=== PATIENT | female | born 1950 | race Caucasian/White ===

== ENCOUNTER 2018-08-11 16:35 | Emergency (ER) | payer SELFPAY ==
[~2018-08-11] VITALS: Ht 152.4 cm; Wt 72.7 kg
[~2018-08-11 16:35] MED LIST: AMLO-512 PO; ASPI81 PO; ATOR20TA86 PO; ATOR40TA28 PO; CLON-570 PO; DSS100 PO; FAMO-136 PO; INSLAN SQ; INSNOV SQ; METO50 PO
[2018-08-11 16:49] LABS: GLUCOSE,POINT OF CARE 203 MG/DL (70-110)
[2018-08-11] MEDS ORDERED: FERR-89 PO (16:57)
[2018-08-11] MEDS ORDERED: LACT1TAB11 PO (16:57)
[2018-08-11] MEDS ORDERED: METF-960 PO (16:57)
[2018-08-11] MEDS ORDERED: CefTRIAXone 1 GM/DEXTROSE 50 ML IV ONE (17:30)
[2018-08-11 18:08] LABS: BASOPHILS % (AUTO) 0.9 % (0.0-2.0); EOSINOPHILS % (AUTO) 2.4 % (1.0-6.0); HEMATOCRIT 35.8 % (36-46); HEMOGLOBIN 11.7 g/dL (12.0-16.0); LYMPHOCYTES # (AUTO) 2.4 K/uL (1.0-4.8); LYMPHOCYTES % (AUTO) 24.9 % (22.0-44.0); MEAN CORPUSCULAR HEMOGLOBIN 25.7 pg (26.0-34.0); MEAN CORPUSCULAR HGB CONC 32.7 G/dL (31.0-37.0); MEAN CORPUSCULAR VOLUME 79 fL (80-100); MONOCYTES # (AUTO) 0.6 K/uL (0.1-1.0); MONOCYTES % (AUTO) 6.5 % (2.0-9.0); NEUTROPHILS # (AUTO) 6.2 K/uL (1.8-7.7); NEUTROPHILS % (AUTO) 65.3 % (40.0-70.0); PLATELET COUNT (AUTO) 315 K/uL (150-450); RED BLOOD CELL COUNT(AUTO) 4.54 MIL/uL (4.00-5.20); RED CELL DISTRIBUTION WIDTH 16.2 % (11.5-14.5)
[2018-08-11 18:26] LABS: CALCIUM, TOTAL 9.7 mg/dL (8.8-10.5); CREATININE 1.09 mg/dL (0.60-1.30); POTASSIUM 4.4 mmol/L (3.5-5.1)
[2018-08-11 18:31] LABS: ALBUMIN 3.8 g/dL (3.4-5.0); BILIRUBIN,TOTAL 0.3 mg/dL (0.1-1.0); TOTAL PROTEIN, SERUM 8.1 g/dL (6.4-8.2)
[2018-08-11 19:33] LABS: APPEARANCE,URINE CLEAR (CLEAR); BILIRUBIN,URINE NEGATIVE (NEGATIVE); GLUCOSE, URINE (UA) 100 mg/dL (NEGATIVE); KETONES,URINE NEGATIVE (NEGATIVE); LEUKOCYTE ESTERASE ,URINE NEGATIVE (NEGATIVE); NITRATE,URINE NEGATIVE (NEGATIVE); OCCULT BLOOD,URINE NEGATIVE (NEGATIVE); PH,URINE 6.5 (5.0-8.0); PROTEIN,URINE NEGATIVE (NEGATIVE); UROBILINOGEN,URINE 0.2 mg/dL (<=1.0)
[2018-08-11 19:43] LABS: BACTERIA,URINE Rare /HPF (None Seen); RBC,URINE 0-2 /HPF (0-2); SQUAMOUS EPITHELIAL CELL,UR Few /LPF (None Seen); WBC,URINE 0-2 /HPF (0-5)
[2018-08-11 19:52] VITALS: BP 142/77
== END 2018-08-11 20:01 | disposition home or self-care (01) ==
LOC: EMS 16:35
DX: N39.0 Urinary tract infection, site not specified (principal); D64.9 Anemia, unspecified; R82.79 Other abnormal findings on microbiological examination of urine; I10 Essential (primary) hypertension; E11.9 Type 2 diabetes mellitus without complications; E78.00 Pure hypercholesterolemia, unspecified; Z88.0 Allergy status to penicillin; Z79.4 Long term (current) use of insulin; Z79.82 Long term (current) use of aspirin
CPT/HCPCS: 86850; 86900; 86901; 96365

== ENCOUNTER 2019-09-08 13:21 | Emergency (ER) | payer MEDICARE ==
[~2019-09-08] VITALS: Ht 152.4 cm; Wt 72.7 kg
[~2019-09-08 13:21] MED LIST changes: -AMLO-512 PO; +AMLO10TA7 PO; +ASPI-728 PO; -ASPI81 PO; -ATOR20TA86 PO; -CLON-570 PO; -FAMO-136 PO; +FERR-89 PO; -INSNOV SQ; +LACT1TAB14 PO; +METF-960 PO
[2019-09-08] MEDS ORDERED: GABA-1181 PO (13:36)
[2019-09-08] MEDS ORDERED: OMEP20 PO (13:36)
[2019-09-08] MEDS ORDERED: AMLO10TA7 PO (13:36)
[2019-09-08] MEDS ORDERED: INSLAN SQ (13:36)
[2019-09-08] MEDS ORDERED: LISI-662 PO (13:36)
[2019-09-08] MEDS ORDERED: ATOR40TA28 PO (13:36)
[2019-09-08] MEDS ORDERED: METO50 PO (13:36)
[2019-09-08] MEDS ORDERED: METF-960 PO (13:36)
[2019-09-08] MEDS ORDERED: LIDOCAINE 5% TRANSDERMAL PATCH TD ONE (14:45)
[2019-09-08] MEDS ORDERED: KETOROLAC TROMETHAMINE 30 MG/ML VIAL IM ONE (14:45)
[2019-09-08 16:53] VITALS: BP 126/82
[2019-09-09 01:28] LABS: GLUCOSE,POINT OF CARE 109 MG/DL (70-110)
== END 2019-09-08 16:54 | disposition home or self-care (01) ==
LOC: EMS 13:22
DX: M54.41 Lumbago with sciatica, right side (principal); M19.90 Unspecified osteoarthritis, unspecified site; M46.1 Sacroiliitis, not elsewhere classified; E11.9 Type 2 diabetes mellitus without complications; E78.00 Pure hypercholesterolemia, unspecified; I10 Essential (primary) hypertension; I25.2 Old myocardial infarction; Z90.710 Acquired absence of both cervix and uterus; Z86.73 Personal history of transient ischemic attack (TIA), and cerebral infarction without residual deficits; Z88.0 Allergy status to penicillin; Z79.82 Long term (current) use of aspirin
CPT/HCPCS: 73502; 73562; 81002; 82962; 99284; J1885

== ENCOUNTER 2024-06-06 19:38 | Inpatient (IN) | payer MEDICARE ==
[~2024-06-06] VITALS: Ht 167.6 cm; Wt 60.5 kg
[~2024-06-06 19:38] MED LIST changes: +AMLO-258 PO; -AMLO10TA7 PO; +ASPI-1450 PO; -ASPI-728 PO; -DSS100 PO; -FERR-89 PO; +GABA-1181 PO; -LACT1TAB14 PO; +LISI-894 PO; +METF-1211 PO; -METF-960 PO; +OMEP-148 PO
[2024-06-06] MEDS: IPRATROPIUM BROMIDE 0.5 MG/2.5 ML NEB SOLUTION NEB ONE (19:52)
[2024-06-06] MEDS: ALBUTEROL SULFATE 2.5 MG/0.5 ML NEB SOLUTION NEB ONE (19:53)
[2024-06-06 19:55] VITALS: PULSE 94; RESP 30; O2SAT 100
[2024-06-06] MEDS ORDERED: LISI40TA9 PO (19:55)
[2024-06-06] MEDS ORDERED: METF-446 PO (19:55)
[2024-06-06] MEDS ORDERED: ATOR20TA65 PO (19:55)
[2024-06-06] MEDS ORDERED: GABA-534 PO (19:55)
[2024-06-06] MEDS ORDERED: LEVO25TA9 PO (19:55)
[2024-06-06] MEDS: MethylPREDNISolone SOD SUCC 125 MG/2 ML VIAL IVP ONE (19:59)
[2024-06-06 20:03] LABS: BASOPHILS % (AUTO) 0.6 % (0.0-2.0); EOSINOPHILS % (AUTO) 2.2 % (1.0-6.0); HEMOGLOBIN 12.9 g/dL (12.0-16.0); MEAN CORPUSCULAR HEMOGLOBIN 29.2 pg (26.0-34.0); MEAN CORPUSCULAR HGB CONC 32.3 G/dL (31.0-37.0); MEAN CORPUSCULAR VOLUME 90 fL (80-100); MONOCYTES # (AUTO) 0.8 K/uL (0.1-1.0); MONOCYTES % (AUTO) 5.1 % (2.0-9.0); NEUTROPHILS # (AUTO) 8.6 K/uL (1.8-7.7); NEUTROPHILS % (AUTO) 58.1 % (40.0-70.0); PLATELET COUNT (AUTO) 283 K/uL (150-450); RED BLOOD CELL COUNT(AUTO) 4.43 MIL/uL (4.00-5.20); RED CELL DISTRIBUTION WIDTH 14.2 % (11.5-14.5); WHITE BLOOD COUNT (AUTO) 14.8 K/uL (4.5-11.0)
[2024-06-06 20:10] VITALS: PULSE 102; RESP 24; O2SAT 91
[2024-06-06 20:10] LABS: ANION GAP 12 mmol/L (8-16); CALCIUM, TOTAL 8.7 mg/dL (8.8-10.5); CARBON DIOXIDE 25 mmol/L (22-29); CHLORIDE 107 mmol/L (98-107); CREATININE 1.47 mg/dL (0.60-1.30); GLOMERULAR FILTR. RATE CALC 35 mL/min (>60); GLUCOSE,RANDOM 345 mg/dL (70-110); POTASSIUM 4.3 mmol/L (3.5-5.1); SODIUM SERUM 144 mmol/L (136-145); UREA NITROGEN, BLOOD 26 mg/dL (7-18)
[2024-06-06 20:21] LABS: CREATINE KINASE, TOTAL ONLY 139 U/L (26-192)
[2024-06-06 20:24] LABS: TROPONIN I-HIGH SENSITIVITY 196 ng/L (<51)
[2024-06-06 20:27] LABS: COVID AG,FIA SOURCE NASAL SWAB
[2024-06-06 20:27] LABS: B-TYPE NATRIURETIC PEPTIDE 311 pg/mL (0-100)
[2024-06-06] MEDS ORDERED: ONDANSETRON HCL 4 MG/2 ML VIAL IVP PRN (20:30)
[2024-06-06] MEDS: SODIUM CHLORIDE 0.9% 1,800 ML IV ONE (20:49)
[2024-06-06 20:50] LABS: INFLUENZA TYPE A NEGATIVE FOR TYPE A (NEGATIVE); INFLUENZA TYPE B NEGATIVE FOR TYPE B (NEGATIVE); SARS-COV2 (COVID) ANTIGEN,FIA Negative (Negative)
[2024-06-06] MEDS: CefTRIAXone 1 GM/DEXTROSE 50 ML IV ONE (20:50)
[2024-06-06 20:51] LABS: GLUCOMETER DEV NAME(LOC) ER.7; GLUCOSE,POINT OF CARE 330 MG/DL (70-110)
[2024-06-06] MEDS: ACETAMINOPHEN 325 MG TABLET PO PRN (20:51)
[2024-06-06] MEDS: AZITHROMYCIN 500 MG/NS 250 ML IV ONE (20:51)
[2024-06-06] MEDS: DOCUSATE SODIUM 100 MG CAPSULE PO SCH (20:51)
[2024-06-06 21:01] LABS: ABG BASE EXCESS -2.6 mmol/L (-2.0-3.0); ABG CARBOXYHEMOGLOBIN 0.6 % (0.5-1.5); ABG HCO3 22.7 mmol/L (21.0-28.0); ABG METHEMOGLOBIN 0.8 % (0.0-1.5); ABG OXYGEN CONTENT 16.4 mL/dL (15.0-23.0); ABG OXYGEN SATURATION 94.5 % (94.0-98.0); ABG OXYHEMOGLOBIN 93.2 % (94.0-98.0); ABG PCO2 35 mmHg (32.0-45.0); ABG PH 7.414 (7.350-7.450); ABG TOTAL HEMOGLOBIN 12.5 G/dL (12.0-16.0); PO2, ARTERIAL BG 66.9 mmHg (83.0-108.0); SOURCE, BLOOD GAS ARTERIAL
[2024-06-06 21:02] LABS: ABG A-A DIFF O2 149.4 mmHg (10-20.0); ALLEN TEST, BLOOD GAS Positive; O2 DEVICE,BLOOD GAS OXYMIZER (ROOM AIR); SITE, BLOOD GAS LFT RADIAL
[2024-06-06] MEDS: SODIUM CHLORIDE 0.9% 250 ML IV ONE (21:22)
[2024-06-06] MEDS: NITROGLYCERIN 0.4 MG SUBLINGUAL TABLET #25 SL PRN (21:22)
[2024-06-06] MEDS: FUROSEMIDE 20 MG/2 ML VIAL IVP ONE (21:22)
[2024-06-06] MEDS: ASPIRIN 81 MG CHEWABLE TABLET PO ONE (21:23)
[2024-06-06] MEDS: ATORVASTATIN CALCIUM 40 MG TABLET PO ONE (21:23)
[2024-06-06] MEDS ORDERED: HEPARIN SODIUM,PORCINE 5,000 UNITS/ML VIAL IVP PRN (21:45)
[2024-06-06 21:55] LABS: PROTHROMBIN TIME 10.1 SEC (9.4-11.6)
[2024-06-06] MEDS: HEPARIN SODIUM 25000 UNITS/D5W 250 ML IV PRN (22:27)
[2024-06-06] MEDS: HEPARIN SODIUM,PORCINE 5,000 UNITS/ML VIAL IVP ONE (22:27)
[2024-06-06 23:10] VITALS: BP 115/72; PULSE 96; RESP 18; TEMP 98; O2SAT 92
[2024-06-07] VITALS (19 sets, daily range): BP systolic 89–141; BP diastolic 55–79; PULSE 84–110; RESP 16–26; TEMP 97.9–98.4; O2SAT 86–100
[2024-06-07] MEDS ORDERED: HEPARIN SODIUM,PORCINE 5,000 UNITS/ML VIAL SQ SCH
[2024-06-07] MEDS ORDERED: DEXTROSE 50%-WATER 25 GM/50 ML SYRINGE IVP PRN (00:15)
[2024-06-07 02:34] LABS: APPEARANCE,URINE CLEAR (CLEAR); BILIRUBIN,URINE NEGATIVE (NEGATIVE); COLOR,URINE LIGHT YELLOW (YELLOW); GLUCOSE, URINE (UA) >=1000 mg/dL (NEGATIVE); KETONES,URINE NEGATIVE (NEGATIVE); LEUKOCYTE ESTERASE ,URINE TRACE (NEGATIVE); NITRATE,URINE NEGATIVE (NEGATIVE); OCCULT BLOOD,URINE NEGATIVE (NEGATIVE); PROTEIN,URINE NEGATIVE (NEGATIVE); SPECIFIC GRAVITIY, URINE 1.008 (1.003-1.030); UROBILINOGEN,URINE <=1.0 mg/dL (<=1.0)
[2024-06-07] MEDS: INSULIN GLARGINE,HUM.REC.ANLOG 100 UNITS/ML SQ SCH (02:46)
[2024-06-07] MEDS: INSULIN LISPRO 100 UNITS/ML SQ ONE (02:51)
[2024-06-07 03:32] LABS: BACTERIA,URINE Few /HPF (None Seen); RBC,URINE 0-2 /HPF (0-2); WBC,URINE 0-2 /HPF (0-5)
[2024-06-07 04:01] LABS: GLUCOMETER DEV NAME(LOC) 5N.2C; GLUCOSE,POINT OF CARE 431 MG/DL (70-110)
[2024-06-07] MEDS: INSULIN LISPRO 100 UNITS/ML SQ PRN (06:30)
[2024-06-07 07:00] LABS: GLUCOMETER DEV NAME(LOC) 5N.2C; GLUCOSE,POINT OF CARE 295 MG/DL (70-110)
[2024-06-07 07:26] LABS: BASOPHILS % (AUTO) 0.2 % (0.0-2.0); EOSINOPHILS % (AUTO) 0 % (1.0-6.0); HEMATOCRIT 37.3 % (36-46); HEMOGLOBIN 12.2 g/dL (12.0-16.0); LYMPHOCYTES # (AUTO) 1.1 K/uL (1.0-4.8); MEAN CORPUSCULAR HEMOGLOBIN 29.2 pg (26.0-34.0); MEAN CORPUSCULAR HGB CONC 32.7 G/dL (31.0-37.0); MEAN CORPUSCULAR VOLUME 89 fL (80-100); MONOCYTES # (AUTO) 0.1 K/uL (0.1-1.0); MONOCYTES % (AUTO) 0.8 % (2.0-9.0); PLATELET COUNT (AUTO) 233 K/uL (150-450); RED BLOOD CELL COUNT(AUTO) 4.18 MIL/uL (4.00-5.20); RED CELL DISTRIBUTION WIDTH 14.3 % (11.5-14.5); WHITE BLOOD COUNT (AUTO) 12.2 K/uL (4.5-11.0)
[2024-06-07 07:36] LABS: ANION GAP 11 mmol/L (8-16); CALCIUM, TOTAL 8.6 mg/dL (8.8-10.5); CARBON DIOXIDE 25 mmol/L (22-29); CHLORIDE 108 mmol/L (98-107); CREATININE 1.28 mg/dL (0.60-1.30); GLOMERULAR FILTR. RATE CALC 41 mL/min (>60); GLUCOSE,RANDOM 321 mg/dL (70-110); POTASSIUM 4.1 mmol/L (3.5-5.1); SODIUM SERUM 144 mmol/L (136-145); UREA NITROGEN, BLOOD 32 mg/dL (7-18)
[2024-06-07] MEDS: FUROSEMIDE 20 MG/2 ML VIAL IVP SCH (08:45)
[2024-06-07 08:51] LABS: TROPONIN I-HIGH SENSITIVITY 8268 ng/L (<51)
[2024-06-07] MEDS ORDERED: FUROSEMIDE 20 MG/2 ML VIAL IVP SCH (09:00)
[2024-06-07] MEDS: DOXYCYCLINE HYCLATE 100 MG in DEXTROSE 5%-WATER 100 ML IV SCH (10:40)
[2024-06-07 12:40] LABS: GLUCOMETER DEV NAME(LOC) 5N.2C; GLUCOSE,POINT OF CARE 193 MG/DL (70-110)
[2024-06-07] MEDS ORDERED: IOHEXOL 300 MG/ML 100 ML VIAL ONE (13:25)
[2024-06-07] MEDS ORDERED: SODIUM BICARBONATE 50 MEQ/50 ML VIAL ONE (13:25)
[2024-06-07] MEDS ORDERED: VERAPAMIL HCL 2.5 MG/ML 2 ML VIAL ONE (13:26)
[2024-06-07] MEDS ORDERED: HEPARIN SODIUM 1000 UNITS/NS 1,000 ML ONE (13:26)
[2024-06-07] MEDS ORDERED: NITROGLYCERIN 50 MG/D5% WATER 250 ML ONE (13:26)
[2024-06-07] MEDS ORDERED: LIDOCAINE/PF 1% 30 ML VIAL ONE (13:26)
[2024-06-07] MEDS ORDERED: FentaNYL CITRATE PF 100 MCG/2 ML VIAL ONE (14:39)
[2024-06-07] MEDS ORDERED: MIDAZOLAM HCL 2 MG/2 ML VIAL ONE (14:39)
[2024-06-07] MEDS: IOHEXOL 300 MG/ML 100 ML VIAL IARTER ONE (15:17)
[2024-06-07] MEDS: VERAPAMIL HCL 2.5 MG/ML 2 ML VIAL IARTER ONE (15:17)
[2024-06-07] MEDS: MIDAZOLAM HCL 2 MG/2 ML VIAL IVP ONE ×2 (15:18→15:20)
[2024-06-07] MEDS: NITROGLYCERIN/D5W 50 MG/250 ML IV BOTTLE IARTER ONE (15:18)
[2024-06-07] MEDS: HEPARIN SODIUM,PORCINE 1,000 UNITS/ML 10 ML VIAL IARTER ONE (15:19)
[2024-06-07] MEDS: FentaNYL CITRATE PF 100 MCG/2 ML VIAL IVP ONE ×2 (15:19→15:20)
[2024-06-07] MEDS: LIDOCAINE 1% 30 ML/SOD BICARB 8.4% 4 ML SQ ONE (15:19)
[2024-06-07] MEDS: HEPARIN SODIUM 1000 UNITS/NS 1,000 ML IARTER ONE (15:21)
[2024-06-07 17:21] LABS: GLUCOMETER DEV NAME(LOC) 5N.2C; GLUCOSE,POINT OF CARE 97 MG/DL (70-110)
[2024-06-07] MEDS: ASPIRIN 81 MG CHEWABLE TABLET PO SCH (20:54)
[2024-06-07] MEDS: ATORVASTATIN CALCIUM 40 MG TABLET PO SCH (20:54)
[2024-06-07] MEDS: CefTRIAXone 1 GM/DEXTROSE 50 ML IV SCH (20:55)
[2024-06-07 21:36] LABS: GLUCOMETER DEV NAME(LOC) 5S.2D; GLUCOSE,POINT OF CARE 180 MG/DL (70-110)
[2024-06-08 01:21] VITALS: BP 123/72; PULSE 80; RESP 19; TEMP 97.9; O2SAT 99
[2024-06-08 01:36] VITALS: BP 130/65; PULSE 76; RESP 18; TEMP 98.2; O2SAT 98
[2024-06-08 04:00] VITALS: BP 125/66; PULSE 72; RESP 17; TEMP 98.2; O2SAT 99
[2024-06-08 07:00] LABS: GLUCOMETER DEV NAME(LOC) 5N.2C; GLUCOSE,POINT OF CARE 96 MG/DL (70-110)
[2024-06-08 07:11] LABS: ANION GAP 4 mmol/L (8-16); CALCIUM, TOTAL 8.8 mg/dL (8.8-10.5); CARBON DIOXIDE 30 mmol/L (22-29); CHLORIDE 107 mmol/L (98-107); CHOL/HDL RATIO 1.7 (3.9-5.7); CHOLESTEROL 109 mg/dL (131-200); CREATININE 1.05 mg/dL (0.60-1.30); GLOMERULAR FILTR. RATE CALC 51 mL/min (>60); GLUCOSE,RANDOM 99 mg/dL (70-110); HDL CHOLESTEROL 64 mg/dL (40-60); LDL CHOL (CALC.) 29 mg/dL (0-130); POTASSIUM 3.7 mmol/L (3.5-5.1); SODIUM SERUM 141 mmol/L (136-145); TRIGLYCERIDES 78 mg/dL (15-150); UREA NITROGEN, BLOOD 24 mg/dL (7-18)
[2024-06-08 07:19] LABS: TROPONIN I-HIGH SENSITIVITY 9856 ng/L (<51)
[2024-06-08 07:42] VITALS: BP 135/73; PULSE 78; RESP 18; TEMP 98; O2SAT 98
[2024-06-08 07:46] LABS: HEMOGLOBIN A1C 6.4 % (3.8-5.6)
[2024-06-08] MEDS: HEPARIN SODIUM,PORCINE 5,000 UNITS/ML VIAL IVP PRN (09:30)
[2024-06-08] MEDS: ASPIRIN 81 MG CHEWABLE TABLET PO SCH (11:13)
[2024-06-08 11:26] LABS: BASOPHILS % (AUTO) 0.5 % (0.0-2.0); EOSINOPHILS % (AUTO) 0.4 % (1.0-6.0); HEMATOCRIT 35.9 % (36-46); HEMOGLOBIN 11.7 g/dL (12.0-16.0); MEAN CORPUSCULAR HEMOGLOBIN 29.1 pg (26.0-34.0); MEAN CORPUSCULAR HGB CONC 32.6 G/dL (31.0-37.0); MEAN CORPUSCULAR VOLUME 89 fL (80-100); MONOCYTES # (AUTO) 0.7 K/uL (0.1-1.0); MONOCYTES % (AUTO) 5.1 % (2.0-9.0); NEUTROPHILS # (AUTO) 11.1 K/uL (1.8-7.7); PLATELET COUNT (AUTO) 238 K/uL (150-450); RED BLOOD CELL COUNT(AUTO) 4.02 MIL/uL (4.00-5.20); RED CELL DISTRIBUTION WIDTH 14.4 % (11.5-14.5); WHITE BLOOD COUNT (AUTO) 13.9 K/uL (4.5-11.0)
[2024-06-08 11:41] VITALS: BP 143/57; PULSE 88; RESP 18; TEMP 97.9; O2SAT 99
[2024-06-08 11:41] LABS: GLUCOMETER DEV NAME(LOC) 5N.2C; GLUCOSE,POINT OF CARE 206 MG/DL (70-110)
[2024-06-08 16:43] VITALS: BP 142/71; PULSE 78; RESP 18; TEMP 98.1; O2SAT 100
[2024-06-08 18:25] LABS: GLUCOMETER DEV NAME(LOC) 5N.2C; GLUCOSE,POINT OF CARE 81 MG/DL (70-110)
[2024-06-08] MEDS ORDERED: CARVEDILOL 3.125 MG TABLET PO SCH (21:00)
== END 2024-06-08 20:07 | disposition short-term general hospital (02) | DRG 280 ==
LOC: EMS 19:38 → EDH 20:48 → 5N 06-07 00:08
PROVIDERS: ADMIT Internal Medicine; ATTEND Internal Medicine
PROC: 4A023N7 Measurement of Cardiac Sampling and Pressure, Left Heart, Percutaneous Approach (ICD-10-PCS; principal; 2024-06-07)
PROC: B2151ZZ Fluoroscopy of Left Heart using Low Osmolar Contrast (ICD-10-PCS; 2024-06-07)
PROC: B2111ZZ Fluoroscopy of Multiple Coronary Arteries using Low Osmolar Contrast (ICD-10-PCS; 2024-06-07)
DX: I21.4 Non-ST elevation (NSTEMI) myocardial infarction (principal); J15.69 Pneumonia due to other Gram-negative bacteria; J96.01 Acute respiratory failure with hypoxia; J15.9 Unspecified bacterial pneumonia; I13.0 Hypertensive heart and chronic kidney disease with heart failure and stage 1 through stage 4 chronic kidney disease, or unspecified chronic kidney disease; N17.9 Acute kidney failure, unspecified; I69.351 Hemiplegia and hemiparesis following cerebral infarction affecting right dominant side; Z20.822 Contact with and (suspected) exposure to COVID-19; I25.10 Atherosclerotic heart disease of native coronary artery without angina pectoris; I50.9 Heart failure, unspecified; E11.65 Type 2 diabetes mellitus with hyperglycemia; N18.30 Chronic kidney disease, stage 3 unspecified; E11.22 Type 2 diabetes mellitus with diabetic chronic kidney disease; E03.9 Hypothyroidism, unspecified; E78.00 Pure hypercholesterolemia, unspecified; F17.200 Nicotine dependence, unspecified, uncomplicated; Z88.0 Allergy status to penicillin; Z90.5 Acquired absence of kidney; Z90.710 Acquired absence of both cervix and uterus; Z95.5 Presence of coronary angioplasty implant and graft
CPT/HCPCS: 36600; 71045; 71250; 80048; 80061; 81001; 82271; 82550; 82805; 82962; 83036; 83735; 83880; 84145; 84484; 85025; 85610; 85730; 87040; 87804; 93005; 93306; 94640; 99285; G0378; J0456; J0696; J1644; J1815; J1940; J2250; J2919; J3010; J3490; J7050; J7060; Q9967; 36415-L1; 36415-TC; J7613; Z7610

== ENCOUNTER 2024-07-19 18:25 | Emergency (ER) | payer MEDICARE ==
[~2024-07-19] VITALS: Ht 157.5 cm; Wt 54.1 kg
[~2024-07-19 18:25] MED LIST changes: +ATOR20TA65 PO; -ATOR40TA28 PO; -GABA-1181 PO; +GABA-534 PO; +LEVO25TA9 PO; -LISI-894 PO; +LISI40TA9 PO; -METF-1211 PO; +METF-446 PO
[2024-07-19 18:32] VITALS: TEMP 97.7
[2024-07-19 19:15] LABS: BASOPHILS % (AUTO) 1.2 % (0.0-2.0); EOSINOPHILS % (AUTO) 1.4 % (1.0-6.0); HEMATOCRIT 34.6 % (36-46); HEMOGLOBIN 11.1 g/dL (12.0-16.0); LYMPHOCYTES % (AUTO) 9.8 % (22.0-44.0); MEAN CORPUSCULAR HEMOGLOBIN 28.3 pg (26.0-34.0); MEAN CORPUSCULAR HGB CONC 32.1 G/dL (31.0-37.0); MEAN CORPUSCULAR VOLUME 88 fL (80-100); MONOCYTES # (AUTO) 0.7 K/uL (0.1-1.0); MONOCYTES % (AUTO) 6.2 % (2.0-9.0); NEUTROPHILS # (AUTO) 8.5 K/uL (1.8-7.7); NEUTROPHILS % (AUTO) 81.4 % (40.0-70.0); PLATELET COUNT (AUTO) 530 K/uL (150-450); RED BLOOD CELL COUNT(AUTO) 3.92 MIL/uL (4.00-5.20); RED CELL DISTRIBUTION WIDTH 17.3 % (11.5-14.5); WHITE BLOOD COUNT (AUTO) 10.4 K/uL (4.5-11.0)
[2024-07-19 19:24] LABS: ANION GAP 8 mmol/L (8-16); CALCIUM, TOTAL 9.3 mg/dL (8.8-10.5); CARBON DIOXIDE 28 mmol/L (22-29); CHLORIDE 103 mmol/L (98-107); CREATININE 1.14 mg/dL (0.60-1.30); GLOMERULAR FILTR. RATE CALC 47 mL/min (>60); GLUCOSE,RANDOM 173 mg/dL (70-110); POTASSIUM 4.1 mmol/L (3.5-5.1); SODIUM SERUM 139 mmol/L (136-145); UREA NITROGEN, BLOOD 29 mg/dL (7-18)
[2024-07-19 19:37] LABS: TROPONIN I-HIGH SENSITIVITY 63 ng/L (<51)
[2024-07-19 20:45] VITALS: BP 135/70; PULSE 89; RESP 20; O2SAT 99
[2024-07-19 21:14] LABS: TROPONIN I-HIGH SENSITIVITY 55 ng/L (<51)
[2024-07-19] MEDS ORDERED: HYDR-4062 PO (21:22)
[2024-07-19] MEDS ORDERED: SULF-261 PO (21:22)
[2024-07-19] MEDS: HYDROCODONE/ACETAMINOPHEN 5-325 MG TABLET PO ONE (21:33)
== END 2024-07-19 22:42 | disposition home or self-care (01) ==
LOC: EMS 18:26
DX: L03.313 Cellulitis of chest wall (principal); R07.89 Other chest pain; E11.9 Type 2 diabetes mellitus without complications; I10 Essential (primary) hypertension; E78.00 Pure hypercholesterolemia, unspecified; Z79.4 Long term (current) use of insulin; Z79.82 Long term (current) use of aspirin; Z88.0 Allergy status to penicillin; Z90.710 Acquired absence of both cervix and uterus; Z79.899 Other long term (current) drug therapy
CPT/HCPCS: 71045; 80048; 84484; 85025; 93005; 99285; 36415-L1; 36415-TC

== ENCOUNTER 2024-09-08 09:36 | Inpatient (IN) | payer MEDICARE ==
[~2024-09-08] VITALS: Ht 154.9 cm; Wt 53.4 kg
[~2024-09-08 09:36] MED LIST changes: +HYDR-4062 PO; +LISI-1024 PO; -LISI40TA9 PO; +SULF-261 PO
[2024-09-08 09:45] VITALS: PULSE 84; RESP 18; O2SAT 99
[2024-09-08] MEDS ORDERED: 0.9% SODIUM CHLORIDE 10 ML SYRINGE IVP PRN (09:45)
[2024-09-08 10:01] LABS: BASOPHILS % (AUTO) 0.5 % (0.0-2.0); EOSINOPHILS % (AUTO) 0.2 % (1.0-6.0); HEMATOCRIT 31.1 % (36-46); HEMOGLOBIN 9.9 g/dL (12.0-16.0); LYMPHOCYTES # (AUTO) 0.7 K/uL (1.0-4.8); MEAN CORPUSCULAR HEMOGLOBIN 26.1 pg (26.0-34.0); MEAN CORPUSCULAR HGB CONC 31.8 G/dL (31.0-37.0); MEAN CORPUSCULAR VOLUME 82 fL (80-100); MONOCYTES # (AUTO) 0.4 K/uL (0.1-1.0); MONOCYTES % (AUTO) 3.1 % (2.0-9.0); NEUTROPHILS # (AUTO) 12.5 K/uL (1.8-7.7); PLATELET COUNT (AUTO) 358 K/uL (150-450); RED BLOOD CELL COUNT(AUTO) 3.78 MIL/uL (4.00-5.20); RED CELL DISTRIBUTION WIDTH 17.4 % (11.5-14.5); WHITE BLOOD COUNT (AUTO) 13.7 K/uL (4.5-11.0)
[2024-09-08 10:03] LABS: NEUTROPHILS % (AUTO) 91.2 % (40.0-70.0)
[2024-09-08 10:09] LABS: ANION GAP 9 mmol/L (8-16); CALCIUM, TOTAL 8.4 mg/dL (8.8-10.5); CARBON DIOXIDE 25 mmol/L (22-29); CHLORIDE 103 mmol/L (98-107); CREATININE 1.19 mg/dL (0.60-1.30); GLOMERULAR FILTR. RATE CALC 44 mL/min (>60); GLUCOSE,RANDOM 251 mg/dL (70-110); POTASSIUM 3.5 mmol/L (3.5-5.1); SODIUM SERUM 137 mmol/L (136-145); UREA NITROGEN, BLOOD 18 mg/dL (7-18)
[2024-09-08 10:11] VITALS: PULSE 86; RESP 18; O2SAT 100
[2024-09-08] MEDS: ALBUTEROL SULFATE 2.5 MG/0.5 ML NEB SOLUTION NEB ONE (10:11)
[2024-09-08] MEDS: IPRATROPIUM BROMIDE 0.5 MG/2.5 ML NEB SOLUTION NEB ONE (10:11)
[2024-09-08 10:13] LABS: PROTHROMBIN TIME 10.7 SEC (9.4-11.6)
[2024-09-08 10:16] LABS: ALANINE AMINOTRANSFERASE 13 U/L (12-78); ALBUMIN 2.6 g/dL (3.4-5.0); ALKALINE PHOSPHATASE 109 U/L (46-116); ASPARTATE AMINOTRANSFERASE 19 U/L (15-37); BILIRUBIN,TOTAL 0.3 mg/dL (0.1-1.0); CREATINE KINASE, TOTAL ONLY 33 U/L (26-192); TOTAL PROTEIN, SERUM 6.8 g/dL (6.4-8.2)
[2024-09-08 10:25] LABS: B-TYPE NATRIURETIC PEPTIDE 1210 pg/mL (0-100)
[2024-09-08 10:27] LABS: LACTIC ACID 2.3 mmol/L (0.4-2.0); TROPONIN I-HIGH SENSITIVITY 86 ng/L (<51)
[2024-09-08] MEDS: LEVOFLOXACIN 750 MG/D5% WATER 150 ML IV ONE (10:52)
[2024-09-08] MEDS: FUROSEMIDE 20 MG/2 ML VIAL IVP ONE (10:52)
[2024-09-08] MEDS: ACETAMINOPHEN 650 MG/ISO-OSM 65 ML IV ONE (10:53)
[2024-09-08 11:17] LABS: TROPONIN I-HIGH SENSITIVITY 203 ng/L (<51)
[2024-09-08 11:38] LABS: APPEARANCE,URINE CLEAR (CLEAR); BILIRUBIN,URINE NEGATIVE (NEGATIVE); COLOR,URINE LIGHT YELLOW (YELLOW); GLUCOSE, URINE (UA) NEGATIVE (NEGATIVE); KETONES,URINE NEGATIVE (NEGATIVE); LEUKOCYTE ESTERASE ,URINE TRACE (NEGATIVE); NITRATE,URINE NEGATIVE (NEGATIVE); OCCULT BLOOD,URINE NEGATIVE (NEGATIVE); PROTEIN,URINE TRACE mg/dL (NEGATIVE); SPECIFIC GRAVITIY, URINE 1.011 (1.003-1.030); UROBILINOGEN,URINE <=1.0 mg/dL (<=1.0)
[2024-09-08 11:45] LABS: BACTERIA,URINE None Seen /HPF (None Seen); RBC,URINE None Seen /HPF (0-2); SQUAMOUS EPITHELIAL CELL,UR Few /LPF (None Seen); WBC,URINE 0-2 /HPF (0-5)
[2024-09-08] MEDS: MAGNESIUM SULFATE 1 GM in DEXTROSE 5%-WATER 50 ML IV ONE (12:27)
[2024-09-08] MEDS ORDERED: ACETAMINOPHEN 325 MG TABLET PO PRN (12:45)
[2024-09-08] MEDS ORDERED: DEXTROSE 50%-WATER 25 GM/50 ML SYRINGE IVP PRN (12:45)
[2024-09-08] MEDS ORDERED: MULT-1387 PO (12:49)
[2024-09-08] MEDS ORDERED: METO25 PO (12:49)
[2024-09-08] MEDS ORDERED: ASPI-1444 PO (12:49)
[2024-09-08] MEDS ORDERED: DOCU100C33 PO (12:49)
[2024-09-08] MEDS ORDERED: AMOX-457 PO (12:49)
[2024-09-08] MEDS ORDERED: FURO40TA5 PO (12:49)
[2024-09-08] MEDS ORDERED: ROSU10TA72 PO (12:49)
[2024-09-08] MEDS ORDERED: ALEN70TA80 PO (12:49)
[2024-09-08] MEDS ORDERED: AMIO200T74 PO (12:49)
[2024-09-08] MEDS: ASPIRIN 81 MG CHEWABLE TABLET PO SCH (12:59)
[2024-09-08] MEDS: ATORVASTATIN CALCIUM 40 MG TABLET PO SCH (13:00)
[2024-09-08] MEDS: *CLINICAL-LEVOFLOXACIN IVPB DOSING CLINICAL ONE (13:28)
[2024-09-08] MEDS: VANCOMYCIN 1.25 GM/WATER(PEG) 250 ML IV ONE (14:30)
[2024-09-08] MEDS: HEPARIN SODIUM,PORCINE 5,000 UNITS/ML VIAL SQ SCH (15:56)
[2024-09-08 16:11] VITALS: BP 109/64; PULSE 80; RESP 18; TEMP 98.2; O2SAT 98
[2024-09-08] MEDS: INSULIN LISPRO 100 UNITS/ML SQ PRN (16:42)
[2024-09-08 17:55] LABS: GLUCOMETER DEV NAME(LOC) 5N.2C; GLUCOSE,POINT OF CARE 166 MG/DL (70-110)
[2024-09-08 19:30] VITALS: BP 110/70; PULSE 89; RESP 18; TEMP 98.4; O2SAT 100
[2024-09-08] MEDS: DOCUSATE SODIUM 100 MG CAPSULE PO SCH (21:32)
[2024-09-08 22:36] LABS: GLUCOMETER DEV NAME(LOC) 5N.2C; GLUCOSE,POINT OF CARE 182 MG/DL (70-110)
[2024-09-08 23:09] VITALS: BP 108/65; PULSE 86; RESP 17; TEMP 98.6; O2SAT 100
[2024-09-09 03:26] VITALS: BP 127/77; PULSE 88; RESP 18; TEMP 98.8; O2SAT 100
[2024-09-09 03:45] LABS: COVID AG,FIA SOURCE NASAL SWAB
[2024-09-09 05:19] LABS: SARS-COV2 (COVID) ANTIGEN,FIA Negative (Negative)
[2024-09-09 05:21] LABS: INFLUENZA TYPE A NEGATIVE FOR TYPE A (NEGATIVE); INFLUENZA TYPE B NEGATIVE FOR TYPE B (NEGATIVE)
[2024-09-09 06:38] LABS: EOSINOPHILS % (AUTO) 0.8 % (1.0-6.0); HEMATOCRIT 27.7 % (36-46); HEMOGLOBIN 8.9 g/dL (12.0-16.0); LYMPHOCYTES # (AUTO) 1.2 K/uL (1.0-4.8); LYMPHOCYTES % (AUTO) 13.4 % (22.0-44.0); MEAN CORPUSCULAR HEMOGLOBIN 26.7 pg (26.0-34.0); MEAN CORPUSCULAR HGB CONC 32.2 G/dL (31.0-37.0); MEAN CORPUSCULAR VOLUME 83 fL (80-100); MONOCYTES # (AUTO) 0.6 K/uL (0.1-1.0); MONOCYTES % (AUTO) 6.6 % (2.0-9.0); NEUTROPHILS # (AUTO) 6.8 K/uL (1.8-7.7); NEUTROPHILS % (AUTO) 78.2 % (40.0-70.0); PLATELET COUNT (AUTO) 333 K/uL (150-450); RED BLOOD CELL COUNT(AUTO) 3.34 MIL/uL (4.00-5.20); RED CELL DISTRIBUTION WIDTH 17.6 % (11.5-14.5); WHITE BLOOD COUNT (AUTO) 8.7 K/uL (4.5-11.0)
[2024-09-09 06:53] LABS: CALCIUM, TOTAL 8.6 mg/dL (8.8-10.5); CREATININE 0.95 mg/dL (0.60-1.30); POTASSIUM 3.5 mmol/L (3.5-5.1)
[2024-09-09] MEDS ORDERED: SODIUM CHLORIDE 0.9% 250 ML IV ONE (07:20)
[2024-09-09 08:18] VITALS: BP 135/74; PULSE 93; RESP 18; TEMP 98.1; O2SAT 95
[2024-09-09 08:48] VITALS: RESP 18; O2SAT 98
[2024-09-09] MEDS: LOSARTAN POTASSIUM 25 MG TABLET PO SCH (08:54)
[2024-09-09] MEDS: FAMOTIDINE 20 MG TABLET PO SCH (08:54)
[2024-09-09] MEDS: METOPROLOL SUCCINATE 25 MG ER TABLET PO SCH (08:54)
[2024-09-09] MEDS: FUROSEMIDE 20 MG/2 ML VIAL IVP SCH (08:55)
[2024-09-09] MEDS: VANCOMYCIN 1GM/WATER(PEG/NADA) 200 ML IV SCH (10:51)
[2024-09-09 12:07] VITALS: BP 123/71; PULSE 95; RESP 19; TEMP 98.7; O2SAT 95
[2024-09-09 15:11] LABS: GLUCOMETER DEV NAME(LOC) 5N.2C; GLUCOSE,POINT OF CARE 141 MG/DL (70-110)
[2024-09-09 15:11] LABS: GLUCOMETER DEV NAME(LOC) 5N.2C; GLUCOSE,POINT OF CARE 105 MG/DL (70-110)
[2024-09-09 15:11] LABS: GLUCOMETER DEV NAME(LOC) 5N.2C; GLUCOSE,POINT OF CARE 63 MG/DL (70-110)
[2024-09-09 16:04] VITALS: BP 131/75; PULSE 95; RESP 18; TEMP 98.4; O2SAT 96
[2024-09-09 19:48] VITALS: BP 139/103; PULSE 100; RESP 19; TEMP 99.3; O2SAT 95
[2024-09-09 21:45] LABS: GLUCOMETER DEV NAME(LOC) 5N.1D; GLUCOSE,POINT OF CARE 187 MG/DL (70-110)
[2024-09-09 21:45] LABS: GLUCOMETER DEV NAME(LOC) 5N.1D; GLUCOSE,POINT OF CARE 125 MG/DL (70-110)
[2024-09-10 00:25] VITALS: BP 140/91; PULSE 109; RESP 19; TEMP 98.6; O2SAT 97
[2024-09-10] MEDS: BISACODYL 10 MG RECTAL RECTAL SUPPOSITORY PR ONE (01:14)
[2024-09-10 04:29] VITALS: BP 135/80; PULSE 95; RESP 18; TEMP 98.6; O2SAT 98
[2024-09-10 05:30] VITALS: BP 144/85; PULSE 90; RESP 18; O2SAT 100
[2024-09-10 06:22] LABS: CALCIUM, TOTAL 9.1 mg/dL (8.8-10.5); CREATININE 1.07 mg/dL (0.60-1.30); POTASSIUM 3.8 mmol/L (3.5-5.1)
[2024-09-10 08:41] VITALS: BP 140/84; PULSE 103; RESP 18; TEMP 97.7; O2SAT 97
[2024-09-10] MEDS: SPIRONOLACTONE 25 MG TABLET PO SCH (09:00)
[2024-09-10 09:19] LABS: BASOPHILS % (AUTO) 0.9 % (0.0-2.0); EOSINOPHILS % (AUTO) 0.8 % (1.0-6.0); HEMATOCRIT 33.8 % (36-46); HEMOGLOBIN 10.9 g/dL (12.0-16.0); LYMPHOCYTES # (AUTO) 1.2 K/uL (1.0-4.8); LYMPHOCYTES % (AUTO) 13.4 % (22.0-44.0); MEAN CORPUSCULAR HEMOGLOBIN 26.5 pg (26.0-34.0); MEAN CORPUSCULAR HGB CONC 32.3 G/dL (31.0-37.0); MEAN CORPUSCULAR VOLUME 82 fL (80-100); MONOCYTES # (AUTO) 0.6 K/uL (0.1-1.0); MONOCYTES % (AUTO) 7.2 % (2.0-9.0); NEUTROPHILS % (AUTO) 77.7 % (40.0-70.0); PLATELET COUNT (AUTO) 383 K/uL (150-450); RED BLOOD CELL COUNT(AUTO) 4.12 MIL/uL (4.00-5.20); RED CELL DISTRIBUTION WIDTH 17.3 % (11.5-14.5)
[2024-09-10] MEDS: LEVOFLOXACIN 750 MG/D5% WATER 150 ML IV SCH (11:19)
[2024-09-10 11:24] VITALS: BP 130/94; PULSE 94; RESP 18; TEMP 98.8; O2SAT 95
[2024-09-10 11:55] LABS: GLUCOMETER DEV NAME(LOC) 5N.1D; GLUCOSE,POINT OF CARE 203 MG/DL (70-110)
[2024-09-10 11:55] LABS: GLUCOMETER DEV NAME(LOC) 5N.1D; GLUCOSE,POINT OF CARE 290 MG/DL (70-110)
[2024-09-10] MEDS ORDERED: LEVO750T68 PO (16:57)
[2024-09-10] MEDS ORDERED: METO25XL PO (16:57)
[2024-09-10] MEDS ORDERED: ATOR40TA71 PO (16:57)
[2024-09-10] MEDS ORDERED: FURO20TA4 PO (16:57)
[2024-09-10] MEDS ORDERED: SPIR-37 PO (16:57)
[2024-09-10] MEDS ORDERED: LINE600T14 PO (16:57)
[2024-09-10] MEDS ORDERED: ASPI-1450 PO (16:57)
[2024-09-10] MEDS ORDERED: EMPA10TA3 PO (16:58)
[2024-09-11] MEDS ORDERED: FUROSEMIDE 20 MG TABLET PO SCH (09:00)
== END 2024-09-10 17:50 | disposition home or self-care (01) | DRG 862 ==
LOC: EMS 09:39 → EDH 12:39 → 5S 15:34 → 5N 15:49
PROVIDERS: ADMIT Internal Medicine; ATTEND Internal Medicine
DX: T81.41XA Infection following a procedure, superficial incisional surgical site, initial encounter (principal); I50.23 Acute on chronic systolic (congestive) heart failure; J96.01 Acute respiratory failure with hypoxia; R65.11 Systemic inflammatory response syndrome (SIRS) of non-infectious origin with acute organ dysfunction; I25.10 Atherosclerotic heart disease of native coronary artery without angina pectoris; Z20.822 Contact with and (suspected) exposure to COVID-19; N28.9 Disorder of kidney and ureter, unspecified; E11.319 Type 2 diabetes mellitus with unspecified diabetic retinopathy without macular edema; R79.89 Other specified abnormal findings of blood chemistry; E03.9 Hypothyroidism, unspecified; I11.0 Hypertensive heart disease with heart failure; I48.91 Unspecified atrial fibrillation; E78.00 Pure hypercholesterolemia, unspecified; H54.61 Unqualified visual loss, right eye, normal vision left eye; Y83.2 Surgical operation with anastomosis, bypass or graft as the cause of abnormal reaction of the patient, or of later complication, without mention of misadventure at the time of the procedure; Y92.89 Other specified places as the place of occurrence of the external cause; Z91.199 Patient's noncompliance with other medical treatment and regimen due to unspecified reason; Z95.1 Presence of aortocoronary bypass graft; Z88.0 Allergy status to penicillin; Z90.710 Acquired absence of both cervix and uterus; Z95.5 Presence of coronary angioplasty implant and graft; Z79.4 Long term (current) use of insulin; Z86.73 Personal history of transient ischemic attack (TIA), and cerebral infarction without residual deficits; Z87.01 Personal history of pneumonia (recurrent); Z83.3 Family history of diabetes mellitus; I25.2 Old myocardial infarction; Z79.899 Other long term (current) drug therapy; Z79.82 Long term (current) use of aspirin
CPT/HCPCS: 71045; 80048; 80076; 81001; 82550; 82962; 83605; 83735; 83880; 84145; 84484; 85025; 85610; 87040; 87070; 87205; 87804; 93005; 93306; 94060; 94640; 99291; J0131; J1644; J1940; J1956; J3475; J7050; J7060; 36415-L1; 36415-TC; J7613